=== PATIENT | male | born 1965 | race Caucasian/White ===

== ENCOUNTER → 2017-03-03 | Outpatient (CLI) | payer BC ==
[2012-03-23 13:15] VITALS: BP 131/70
[~2017-03-03] MED LIST: CLARITIN D TAB1 TAB PO; DOXYCYCLINE 10100 MG PO; FLONASE0.05 MG/AC NS; PREDNISONE10 MG PO; TAGAMET400 MG PO
[2017-03-03 11:19] LABS: ALBUMIN 4.4 g/dL (3.5-5.0); BUN/CREATININE RATIO 17.9 (6.0-26.0); CALCIUM 9.6 mg/dL (8.4-10.2); POTASSIUM 4.1 mmol/L (3.6-5.0); TOTAL BILIRUBIN 2.1 mg/dL (0.2-1.3); TOTAL PROTEIN 7.3 g/dL (6.3-8.2)
== END ==
LOC: LAB 10:30
PROVIDERS: Family Medicine
DX: Z00.00 Encounter for general adult medical examination without abnormal findings (principal); J45.909 Unspecified asthma, uncomplicated; K92.1 Melena; M25.521 Pain in right elbow; R06.83 Snoring; J30.2 Other seasonal allergic rhinitis; Z83.3 Family history of diabetes mellitus; Z13.1 Encounter for screening for diabetes mellitus; Z12.5 Encounter for screening for malignant neoplasm of prostate; Z12.12 Encounter for screening for malignant neoplasm of rectum; E66.9 Obesity, unspecified; Z23 Encounter for immunization; E80.6 Other disorders of bilirubin metabolism

== ENCOUNTER → 2017-03-08 | Day surgery (SDC) | payer BC ==
[2012-03-23 13:15] VITALS: BP 131/70
== END ==
LOC: MSO 13:53
DX: Z12.11 Encounter for screening for malignant neoplasm of colon (principal); J45.909 Unspecified asthma, uncomplicated; Z87.891 Personal history of nicotine dependence; K57.30 Diverticulosis of large intestine without perforation or abscess without bleeding; D12.0 Benign neoplasm of cecum
CPT/HCPCS: 00810; J7120

== ENCOUNTER → 2017-03-16 | Outpatient (CLI) | payer BC ==
[2012-03-23 13:15] VITALS: BP 131/70
== END ==
LOC: CARDREHAB 11:48
DX: G47.33 Obstructive sleep apnea (adult) (pediatric) (principal); R06.83 Snoring; R79.89 Other specified abnormal findings of blood chemistry; J45.20 Mild intermittent asthma, uncomplicated; G47.36 Sleep related hypoventilation in conditions classified elsewhere; E66.3 Overweight; Z68.29 Body mass index [BMI] 29.0-29.9, adult
CPT/HCPCS: G0399

== ENCOUNTER → 2017-06-29 | Outpatient (CLI) | payer BC ==
[2012-03-23 13:15] VITALS: BP 131/70
[2017-06-29 09:36] LABS: ALBUMIN 4.1 g/dL (3.5-5.0); BUN/CREATININE RATIO 18.1 (6.0-26.0); CALCIUM 9.4 mg/dL (8.4-10.2); DIRECT BILIRUBIN 0.3 mg/dL (0.0-0.4); POTASSIUM 4.2 mmol/L (3.6-5.0); TOTAL BILIRUBIN 0.9 mg/dL (0.2-1.3); TOTAL PROTEIN 7.3 g/dL (6.3-8.2)
== END ==
LOC: LAB 09:13
PROVIDERS: Family Medicine
DX: E78.00 Pure hypercholesterolemia, unspecified (principal); R79.89 Other specified abnormal findings of blood chemistry

== ENCOUNTER → 2020-12-29 | Day surgery (SDC) | payer OTHER | END | disposition home or self-care (01) | LOC: MSO 07:34 | DX: K21.00 Gastro-esophageal reflux disease with esophagitis, without bleeding (principal); K44.9 Diaphragmatic hernia without obstruction or gangrene; K29.70 Gastritis, unspecified, without bleeding; K29.80 Duodenitis without bleeding; K31.89 Other diseases of stomach and duodenum; J45.909 Unspecified asthma, uncomplicated; Z87.891 Personal history of nicotine dependence; Z79.899 Other long term (current) drug therapy | CPT/HCPCS: 00731; J2704; J7120 ==

== ENCOUNTER → 2021-06-26 | Outpatient (CLI) | payer OTHER ==
[2021-06-26 12:01] LABS: ALBUMIN 4.4 g/dL (3.5-5.0)
[2021-06-26 12:02] LABS: POTASSIUM 3.7 mmol/L (3.5-5.1); SODIUM 144 mmol/L (136-145)
[2021-06-26 12:03] LABS: CALCIUM 9.7 mg/dL (8.3-10.5)
[2021-06-26 12:04] LABS: GLUCOSE 120 mg/dL (75-110); TOTAL PROTEIN 7.2 g/dL (6.4-8.3)
[2021-06-26 12:05] LABS: CARBON DIOXIDE 26 mmol/L (22-29)
[2021-06-26 12:06] LABS: TOTAL BILIRUBIN 1.3 mg/dL (0.2-1.2)
[2021-06-26 12:09] LABS: AST-SGOT 26 U/L (5-34)
[2021-06-26 12:10] LABS: ALT/SGPT 46 U/L (0-55)
[2021-06-26 12:37] LABS: TROPONIN-I < 0.030 ng/mL (<0.030)
[2021-06-26 12:56] LABS: BASO # 0.05 K/mm3 (0.02-0.10); EOS # 0.47 K/mm3 (0.04-0.40); EOS % 8.5 % (0.0-4.0); HEMATOCRIT 49.3 % (42.0-52.0); HEMOGLOBIN 16.3 g/dL (13.5-18.0); LYMPH# 1.02 K/mm3 (1.50-4.00); MEAN CELL VOLUME 89 fl (78-100); MEAN CORPUSCULAR HEMOGLOBIN 29 pg (27-31); MEAN CORPUSCULAR HGB CONC 33 g/dL (33-37); MEAN PLATELET VOLUME 9.8 fl (7.4-10.4); MONO # 0.62 K/mm3 (0.20-0.80); NEU # 3.36 K/mm3 (1.40-6.50); PLATELET COUNT 293 K/mm3 (130-400); RED BLOOD COUNT 5.55 M/mm3 (4.20-5.60); RED CELL DISTRIBUTION WIDTH 13.2 % (11.5-14.5); WHITE BLOOD COUNT 5.5 K/mm3 (4.8-10.8)
[2021-06-26 13:04] LABS: D-DIMER 0.37 mg/L FEU (0.15-0.50)
== END ==
LOC: LAB 11:34
PROVIDERS: Nurse Practitioner Primary Care
DX: R07.9 Chest pain, unspecified (principal)

== ENCOUNTER → 2022-01-11 | Day surgery (SDC) | payer OTHER | LOC: MSO 07:58 | DX: Z12.11 Encounter for screening for malignant neoplasm of colon (principal); K42.9 Umbilical hernia without obstruction or gangrene; D12.3 Benign neoplasm of transverse colon; D17.1 Benign lipomatous neoplasm of skin and subcutaneous tissue of trunk; Z87.891 Personal history of nicotine dependence | CPT/HCPCS: 00830; C1781; J2704; J3010; J3490; J7120 ==